=== PATIENT | female | born 1990 | race Hispanic/Latino ===

== ENCOUNTER 2018-01-02 20:45 | Emergency (ER) | payer SELFPAY ==
[2018-01-02 20:59] VITALS: BP 122/71
[2018-01-02 21:42] LABS: Basophils % (Auto) 0.5 % (0.0-1.8); Eosinophils # (Auto) 0.3 K/mm3 (0.0-0.4); Eosinophils % (Auto) 4.5 % (0.0-4.3); Hematocrit 37.7 % (30.3-42.9); Lymphocytes # (Auto) 2.8 K/mm3 (1.2-5.4); Lymphocytes % (Auto) 46.3 % (13.4-35.0); Mean Corpuscular HGB Conc 34 % (30-34); Mean Corpuscular Hemoglobin 30 pg (28-32); Mean Corpuscular Volume 86 fl (79-97); Monocytes # (Auto) 0.6 K/mm3 (0.0-0.8); Monocytes % (Auto) 10.1 % (0.0-7.3); Platelet Count 167 K/mm3 (140-440); Red Cell Distribution Width 13.2 % (13.2-15.2)
[2018-01-02 22:02] LABS: Alanine Aminotransferase 20 units/L (7-56); Albumin 4.2 g/dL (3.9-5); BUN/Creatinine Ratio 14; Blood Urea Nitrogen 11 mg/dL (7-17); Calcium 8.8 mg/dL (8.4-10.2); Hemolysis Index 19
--- NOTE | 2018-01-02 22:54 | Cat Scan Report ---
FINAL REPORT EXAM: CT HEAD/BRAIN WO CON HISTORY: ANTONY/LOC TECHNIQUE: Standard unenhanced CT of the head at 5.0 millimeter axial increments. PRIORS: None. FINDINGS: The ventricular system is normal in size and configuration. There is no evidence for parenchymal volume loss. There is no evidence for mass lesion, mass effect, midline shift, acute intracranial hemorrhage, or acute ischemia/ infarction. No evidence for acute skull fracture is seen. No abnormality in the overlying scalp soft tissues is seen. Visualized paranasal sinuses demonstrates opacification of several posterior left ethmoid air cells. IMPRESSION: No acute intracranial process noted. Mild chronic sinusitis of the left ethmoid sinuses
--- NOTE | 2018-01-03 01:38 | XRay Report ---
FINAL REPORT PROCEDURE: XR CHEST ROUTINE 2V TECHNIQUE: PA and lateral chest radiographs were obtained. CPT 10239 HISTORY: Syncope. COMPARISON: No prior studies are available for comparison. FINDINGS: Heart: Normal. Mediastinum/Vessels: Normal. Lungs/Pleural space: Normal. Bony thorax: No acute osseous abnormality. Other: IMPRESSION: No radiographic evidence of acute cardiopulmonary disease.
[2018-01-03] MEDS ORDERED: TORADOL IM ONE (02:11)
--- NOTE | 2018-01-03 03:02 | Emergency Department Report ---
ED Headache HPI - General Chief Complaint: Syncope Stated Complaint: headache Time Seen by Provider: 01/03/18 01:59 - History of Present Illness Initial Comments: Patient is a 27-year-old female who is presenting with headache for approximately 1 year. Patient states that her headaches wax and wane P today. Patient states that she had a syncopal episode at home. Patient states her headache was so bad she passed out. The patient states her headache started approximately a year ago after a closed head injury. Patient was supposed to follow with neurology but did not. Patient denies any fevers chills neck stiffness nausea vomiting at this time. Patient is to headache as 6 out of 10 right sided and throbbing. Allergies/Adverse Reactions: Allergies No Known Allergies Allergy (Unverified 01/02/18 21:18) Home Medications: Ambulatory Orders Ketorolac [Toradol] 10 mg PO Q6H PRN #10 tablet 01/03/18 ED Review of Systems ROS: Stated complaint: headache Other details as noted in HPI Comment: All other systems reviewed and negative ED Past Medical Hx - Past Medical History Previous Medical History?: No - Surgical History Past Surgical History?: Yes Additional Surgical History: c-sec X2 - Social History Smoking Status: Current Every Day Smoker Substance Use Type: Marijuana - Medications Home Medications: Home Medications Medication Instructions Recorded Confirmed Last Taken Type Ketorolac [Toradol] 10 mg PO Q6H PRN #10 tablet 01/03/18 Unknown Rx ED Physical Exam - General Limitations: No Limitations General appearance: alert, in no apparent distress - Head Head exam: Present: atraumatic, normocephalic - Eye Eye exam: Present: normal appearance - ENT ENT exam: Present: mucous membranes moist - Neck Neck exam: Present: normal inspection - Respiratory Respiratory exam: Present: normal lung sounds bilaterally. Absent: respiratory distress - Cardiovascular Cardiovascular Exam: Present: regular rate, normal rhythm. Absent: systolic murmur, diastolic murmur, rubs, gallop - GI/Abdominal GI/Abdominal exam: Present: soft, normal bowel sounds - Extremities Exam Extremities exam: Present: normal inspection - Back Exam Back exam: Present: normal inspection - Neurological Exam Neurological exam: Present: alert, oriented X3 - Psychiatric Psychiatric exam: Present: normal affect, normal mood - Skin Skin exam: Present: warm, dry, intact, normal color. Absent: rash ED Course Vital Signs 01/02/18 20:53 Temperature 99.0 F Pulse Rate 77 Respiratory 16 Rate Blood Pressure 122/71 O2 Sat by Pulse 99 Oximetry ED Medical Decision Making - Lab Data Result diagrams: 01/02/18 21:29 01/02/18 21:29 - Radiology Data Radiology results: report reviewed CT of the head shows no acute process - Medical Decision Making Patient is a 27-year-old female who is one year of headaches. His laboratory studies are within normal limits his CT is normal. Patient's headache is present for approximately a year and has not changed. The only thing different today is that she had a "syncopal episodes". This was unwitnessed. Patient was given a shot of Toradol be discharged home. Critical care attestation.: If time is entered above; I have spent that time in minutes in the direct care of this critically ill patient, excluding procedure time. ED Disposition Clinical Impression: Chronic headaches Qualifiers: Headache type: unspecified Intractability: not intractable Qualified Code(s): R51 - Headache Disposition: DC- TO HOME OR SELFCARE Is pt being admited?: No Does the pt Need Aspirin: No Condition: Stable Instructions: Acute Headache (ED) Prescriptions: Ketorolac [Toradol] 10 mg PO Q6H PRN #10 tablet PRN Reason: Pain Referrals: ROXANE OWEN MD [Referring] - 3-5 Days
== END 2018-01-03 03:12 | disposition home or self-care (01) ==
LOC: ED 20:45
DX: G89.29 Other chronic pain (principal); R51 Headache; F17.200 Nicotine dependence, unspecified, uncomplicated; F12.10 Cannabis abuse, uncomplicated
CPT/HCPCS: 36415; 70450; 71046; 80053; 84703; 85025; 93005; 93010; 96372; 99284; J1885